=== PATIENT | female | born 1960 | race Caucasian/White ===

== ENCOUNTER 2019-07-10 15:57 | Outpatient (REF) | payer BC, SELFPAY ==
[2019-07-10 20:09] LABS: ALT 23 U/L (14-59); Anion Gap 8.5 mmol/L (3-11); BUN 11 mg/dL (7-18); CO2 29.5 mmol/L (21.0-32.0); CREATININE 0.68 mg/dL (0.55-1.02); Chloride 99 mmol/L (98-107); Glucose 94 mg/dL (70-100); LDL CHOLESTEROL 136 mg/dL (<100); Potassium 3.3 mmol/L (3.5-5.1); Sodium 137 mmol/L (136-145)
== END 2019-07-10 16:17 ==
LOC: NCHCN 15:57
PROVIDERS: PCP Internal Medicine; Visit Provider Internal Medicine
DX: Z00.00 Encounter for general adult medical examination without abnormal findings (principal); Z13.220 Encounter for screening for lipoid disorders; Z13.228 Encounter for screening for other metabolic disorders
CPT/HCPCS: 80048; 83721; 84460

== ENCOUNTER 2021-04-11 16:58 | Outpatient (REF) | payer BC, SELFPAY ==
[2021-04-11 18:14] LABS: HCT 42.8 % (36.0-46.0); HGB 13.6 g/dL (11.2-15.7); MCH 25.5 pg (27.0-33.0); MCHC 31.8 % (32.0-36.0); MCV 80.1 fL (80-95); Platelet Count 410 10^3/uL (130-400); RBC 5.34 10^6/uL (3.93-5.22); RDW 15.3 % (11.7-14.6); RDW-SD 44.2 fL; WBC 14.85 10^3/uL (4.4-10.8)
[2021-04-11 19:32] LABS: BUN 22 mg/dL (7-18); CREATININE 0.9 mg/dL (0.55-1.02); Calcium 9.3 mg/dL (8.5-10.1); Chloride 101 mmol/L (98-107); Glucose 103 mg/dL (74-106); Potassium 3.7 mmol/L (3.5-5.1); Sodium 139 mmol/L (136-145); TSH 1.39 uIU/mL (0.36-3.74)
== END 2021-04-11 16:59 | disposition home or self-care (01) ==
LOC: NCHCN 16:58
PROVIDERS: PCP Internal Medicine; Visit Provider Internal Medicine
DX: E78.5 Hyperlipidemia, unspecified (principal); I10 Essential (primary) hypertension
CPT/HCPCS: 80048; 85027; 84443

== ENCOUNTER 2022-04-13 16:50 | Outpatient (REF) | payer OTHER, SELFPAY ==
[2022-04-13 19:13] LABS: BUN 28 mg/dL (7-18); CREATININE 0.9 mg/dL (0.55-1.02); Calcium 8.8 mg/dL (8.5-10.1); Chloride 98 mmol/L (98-107); Glucose 114 mg/dL (74-106); LDL CHOLESTEROL 140 mg/dL (<100); Potassium 3.5 mmol/L (3.5-5.1); Sodium 137 mmol/L (136-145)
== END 2022-04-13 16:51 | disposition home or self-care (01) ==
LOC: NCHCN 16:50
PROVIDERS: PCP Internal Medicine; Visit Provider Internal Medicine
DX: E78.5 Hyperlipidemia, unspecified (principal); I10 Essential (primary) hypertension
CPT/HCPCS: 80048; 83721

== ENCOUNTER 2023-07-30 14:58 | Outpatient (REF) | payer OTHER, SELFPAY ==
[2023-07-30 19:14] LABS: ALT 25 U/L (14-59); Anion Gap 9.9 mmol/L (3-11); BUN 20 mg/dL (7-18); CO2 29.1 mmol/L (21.0-32.0); CREATININE 0.8 mg/dL (0.55-1.02); Calcium 9.8 mg/dL (8.5-10.1); Calculated LDL 123 mg/dL (<100); Chloride 96 mmol/L (98-107); Cholesterol 202 mg/dL (<200); Glucose 106 mg/dL (74-106); HDL Cholesterol 57 mg/dL (40-60); Potassium 3.5 mmol/L (3.5-5.1); Sodium 135 mmol/L (136-145); TSH 1.02 uIU/mL (0.36-3.74); Triglyceride 111 mg/dL (<150)
[2023-07-30 19:35] LABS: Creatine Kinase 65 U/L (26-192)
== END 2023-07-30 14:59 | disposition home or self-care (01) ==
LOC: NCHCN 14:58
PROVIDERS: PCP Internal Medicine; Visit Provider Internal Medicine
DX: Z00.00 Encounter for general adult medical examination without abnormal findings (principal); E78.5 Hyperlipidemia, unspecified; I10 Essential (primary) hypertension
CPT/HCPCS: 80048; 80061; 82550; 84443; 84460

== ENCOUNTER 2024-12-15 18:48 | Outpatient (REF) | payer OTHER, SELFPAY ==
--- OUTSIDE RECORDS SUMMARY | 2024-12-15 18:53 | XMS_ITS | Encounter Summary ---
Author Organization [facility] Address [address] [place] [id number] Care Team Providers Care Technology Education Instructor Name Role Phone Unknown, Provider Primary Care Provider Unava ilable Encounter Details Date Type Department Care Team (Late st Contact Info) Description 09/05/2014 Results Only [facility] - [facility] ([facility] [place] [address] [place] [address], [place] [id number] Cortez Chowdhury MD [address] [place] [phone] Social History Tobacco Use Types Packs/Day Years Used Date Smoking Tobacco: Never Assessed Comments Unknown Sex and Gender Information Value Date Recorded Sex Assigned at Not on file Legal Sex Female 15:22 EST Gender Identity Not on file Sexual Orientation Not on file documented as of this encounter Plan of Treatment Not on file documented as of this encounter Procedures Procedure Name Priority Date/Time Associated Diagnosis Comments SURGICAL PATHOLOGY Routine 09/05/2014 9:18 EST documented in this encounter Results * SURGICAL PATHOLOGY (09/05/2014 9:18 EST) Pathology Report: SURGICAL PATHOLOGY REPORT Reports generated via electronic interface contain original data; however they are lacking the format of the original report. Caution should be taken when reading/interpreti ng unformatted reports. Name: ? VESTA MOORE ? Accession #: ? [id number] ? : ? 1960 (Age: 53) ??F ? Collect Date: ? 09/05/2014 ? Location: ? [facility] ? Receive Date: ? 09/06/2014 ? Provider: CORTEZ CHOWDHURY MD Copy to: CECI COHEN MD ? 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 See comment. - Margins are negative for tumor; tumor present: ??- 1.0 mm from superior margin. ??- 3.0 mm from inferior margin. ??- 5.0 mm from anterior margin. ??- Greater than 1.0 cm from remaining margins. Comment: Sections demonstrate a moderately hypercellular fibroepithelial tumor which is well-circumscribed with non-infiltrative borders. There is focal stromal overgrowth and mild to moderate stromal atypia. Focal necrosis is identified, a finding that can be seen in large tumors. ??Mitoses range from 2 /10 to 7/[address] Gama Waller has reviewed this case in consultation and agrees with the interpretation. ??(Dr. Rivera)/[facility] Document reviewed and electronically signed by: NALLELY RIVERA MD Report ??Date: 09/11/2014 16:43 By the signature above, the attending physician certifies that he/she has personally conducted a gross and/or microscopic examination of the described specimens and rendered or confirmed the above diagnosis. Specimen(s) Received: R breast bx, blue stitch medial, white inferior, black lateral Clinical History: R breast mass Gross Description: ? Received in formalin labelled with proper patient identification (initials L, M) and right breast biopsy is an oriented partial mastectomy (266 g, 7.0 cm superior to inferior x 11.0 cm medial to lateral x 8.0 cm anterior to posterior), oriented as per the requisition. ??On the anterior surface, there is an overlying ellipse of pink-garcia skin (8.0 cm medial to lateral, 2.0 cm superior to inferior), with no discrete lesions. ? In the central aspect, subjacent to the skin, is a pink-white, firm, lobulated, well circumscribed mass (8.5 x 5.6 x 4.6 cm). ??Sectioning discloses a homogenous and septated cut surface with a central brown-red soft focus (2.1 x 1.5 x 0.8 cm). ??The mass approaches the superior margin, is 0.3 cm from the inferior margin, 0.5 cm from the anterior margin, and is greater than 1.0 cm from all remaining margins. ??There is a moderate amount of surrounding fibroadipose tissue admixed with a small amount of fibrous tissue. ? Seed Expert sections are submitted as follows: Ink limon Yellow-anterior Black-posterior Blue-superior Green-inferior ? Red-medial Nelson-lateral ? BLOCK LIMON 1-2- ??mass to closest superior margin 3- ??mass to closest anterior margin, including skin 4- ??mass to closest inferior margin 5-6- ??mass (including central brown focus) to normal 7-8- ??mass to normal 9-10- ??telecommunications sales representative mass 11- ??telecommunications sales representative medial margin 12- ??telecommunications sales representative posterior margin 13- ??telecommunications sales representative lateral margin Time removed from patient: 1300 hrs on 09/05/2014 Time in formalin: 1300 hrs on 09/05/2014 Time out of formalin: 1900 hrs on 09/06/2014 Dr. Mcgarry 09/06/2014 03:03 PM End of Report [facility] 09/05/2014 9:18 EST 09/06/2014 9:18 EST us Cortez Chowdhury MD PATHOLOGY ORDERABLES Final Res ult [facility] [address] [place] [address] documented in this encounter Visit Diagnoses Not on filedocumented in this encounter Care Teams Technology Education Instructor Relationship Specialty Start Date End Date Unknown, Provider, PCP - General 09/05/14 09/09/14 documented as of this encounter
--- OUTSIDE RECORDS SUMMARY | 2024-12-15 18:53 | XMS_ITS | Clinical Summary ---
Author Organization [facility] Address [address] [place] [address] Care Team Providers Care Insight Director Name Role Phone None, Provider Primary Care Provider Unavailabl e Social History Tobacco Use Types Packs/Day Years Used Date Smoking Tobacco: Never Assessed Comments Unknown Sex and Gender Information Value Date Recorded Sex Assigned at Not on file Legal Sex Female 15:22 EST Gender Identity Not on file Sexual Orientation Not on file Plan of Treatment Health Maintenance Due Date Last Done Comments Hepatitis C Screen 1960 COVID-19 Vaccine (2023-25 season) 2024 RSV Immunization ( o r 60+ Years) (1 - 1-dose 75+ series) 2037 Care Teams Insight Director Relationship Specialty Start Date End Date None, Provider PCP - General 09/10/14
--- OUTSIDE RECORDS SUMMARY | 2024-12-15 18:53 | XMS_ITS | Encounter Summary ---
Author Organization [facility] Address [address] [place] [address] Care Team Providers Care Cargo Trimmer Name Role Phone Unknown, Provider Primary Care Provider Unava ilable Encounter Details Date Type Department Care Team (Latest Contact Info) Description 09/05/2014 11:31 EST - 09/05/2014 23:59 EST Hospital Encounter [address] [id number] Unknown, Provider, Discharge Disposition: Home or Self Care Social History Tobacco Use Types Packs/Day Years Used Date Smoking Tobacco: Never Assessed Comments Unknown Sex and Gender Information Value Date Recorded Sex Assigned at Not on file Legal Sex Female 15:22 EST Gender Identity Not on file Sexual Orientation Not on file documented as of this encounter Discharge Disposition Disposition Code Departure Means Destination Home or Self Shelter documented in this encounter Plan of Treatment Not on file documented as of this encounter Visit Diagnoses Not on filedocumented in this encounter Care Teams Cargo Trimmer Relationship Specialty Start Date End Date Unknown, Provider, PCP - General 09/05/14 09/09/14 documented as of this encounter
--- OUTSIDE RECORDS SUMMARY | 2024-12-15 18:53 | XMS_ITS | Referral Summary ---
Author Organization [facility] Address [address] [place] [address] Care Team Providers Care Dental Office Assistant Name Role Phone None, Provider Primary Care Provider Unavailabl e Social History Tobacco Use Types Packs/Day Years Used Date Smoking Tobacco: Never Assessed Comments Unknown Sex and Gender Information Value Date Recorded Sex Assigned at Not on file Legal Sex Female 15:22 EST Gender Identity Not on file Sexual Orientation Not on file Plan of Treatment Not on file Care Teams Dental Office Assistant Relationship Specialty Start Date End Date None, Provider PCP - General 09/10/14
[2024-12-15 19:51] LABS: Anion Gap 6.3 mmol/L (3-11); BUN 19 mg/dL (7-18); CO2 30.7 mmol/L (21.0-32.0); CREATININE 0.8 mg/dL (0.55-1.02); Calcium 9.3 mg/dL (8.5-10.1); Chloride 100 mmol/L (98-107); Estimated GFR 83.26 (mL/min/1.73m2); Glucose 103 mg/dL (74-106); Potassium 3.7 mmol/L (3.5-5.1); Sodium 137 mmol/L (136-145)
== END 2024-12-15 18:49 | disposition home or self-care (01) ==
LOC: NCHCN 18:48
PROVIDERS: PCP Internal Medicine; Visit Provider Internal Medicine
DX: I10 Essential (primary) hypertension (principal)
CPT/HCPCS: 80048